=== PATIENT | male | born 1945 | race Caucasian/White ===

== ENCOUNTER → 2017-10-19 | Outpatient (CLI) | payer MEDICARE ==
[~2017-10-19] MED LIST: AMLO10TA2 PO; ASCO500C2 PO; ASPI-621 PO; ATOR-2 PO; CHOL10003 PO; CYAN100074 PO; FLEC150T PO; GABA-827 PO; HYDR-3245 PO; LANS15CA5 PO; LISI-170 PO; MELO7.5T31 PO; OMEG1CAP6 PO; POTA99TA2 PO; UBID1CAP51 PO; iron PO
== END | disposition home or self-care (01) ==
LOC: CVU 09:20
PROVIDERS: ATTEND Internal Medicine Cardiovascular Disease
DX: G47.30 Sleep apnea, unspecified (principal); I70.0 Atherosclerosis of aorta; E78.5 Hyperlipidemia, unspecified; I10 Essential (primary) hypertension; Z87.891 Personal history of nicotine dependence; I77.811 Abdominal aortic ectasia
CPT/HCPCS: 93978

== ENCOUNTER 2017-12-16 07:01 | Day surgery (SDC) | payer MEDICARE ==
[~2017-12-16] VITALS: Ht 182.9 cm; Wt 110.9 kg
[2017-12-16 07:36] VITALS: BP 114/70
[2017-12-16] MEDS ORDERED: TIOT18CA INH (07:53)
[2017-12-16] MEDS ORDERED: FENO145T13 PO (07:53)
[2017-12-16] MEDS ORDERED: ALPH200C PO (07:53)
[2017-12-16] MEDS ORDERED: VITA100C8 PO (07:53)
[2017-12-16] MEDS ORDERED: FENTANYL PF 100 MCG/2ML ONE (08:27)
[2017-12-16] MEDS ORDERED: LIDOCAINE 2%, 20ML ONE (08:27)
[2017-12-16] MEDS ORDERED: MIDAZOLAM 1 MG/ML, 2ML ONE ×2 (08:27→09:15)
[2017-12-16] MEDS ORDERED: BIVALIRUDIN 250 MG ONE (09:15)
[2017-12-16] MEDS ORDERED: HEPARIN 1,000 UNITS/ML, 10ML ONE (09:15)
[2017-12-16] MEDS ORDERED: SODIUM CHLORIDE 0.9% 1,000 ML IV SCH (09:43)
== END 2017-12-16 12:43 | disposition home or self-care (01) ==
LOC: CACL 07:01
PROVIDERS: ATTEND Internal Medicine Cardiovascular Disease
DX: I25.110 Atherosclerotic heart disease of native coronary artery with unstable angina pectoris (principal); I20.0 Unstable angina; E78.00 Pure hypercholesterolemia, unspecified; I10 Essential (primary) hypertension; I48.91 Unspecified atrial fibrillation; E78.5 Hyperlipidemia, unspecified; G47.30 Sleep apnea, unspecified; J44.9 Chronic obstructive pulmonary disease, unspecified; Z87.891 Personal history of nicotine dependence; Z79.82 Long term (current) use of aspirin; Z88.6 Allergy status to analgesic agent
CPT/HCPCS: 93458; 93571; 93572; 99156; 99157; C1760; C1769; C1887; C1894; J1644; J2250; J3010; J3490; Q9967; J0583

== ENCOUNTER → 2020-08-20 | Outpatient (CLI) | payer MEDICARE ==
[~2020-08-20] MED LIST changes: +ALPH200C PO; +AMLO-211 PO; -AMLO10TA2 PO; -ASPI-621 PO; +ASPI81TA45 PO; +FENO145T19 PO; +REGADENOSON 0.4 MG/5 ML SYRINGE ONE; +TIOT18CA INH; +VITA100C8 PO
== END | disposition home or self-care (01) ==
LOC: CFH 12:06
PROVIDERS: ATTEND Internal Medicine Cardiovascular Disease
DX: I10 Essential (primary) hypertension (principal); I25.10 Atherosclerotic heart disease of native coronary artery without angina pectoris
CPT/HCPCS: 78452; 93017; A9502; J2785